=== PATIENT | male | born 1955 | race Caucasian/White ===

== ENCOUNTER 2024-05-14 07:21 | Emergency (ER) | payer MEDICARE, SELFPAY ==
[2024-05-14] VITALS (10 sets, daily range): BP systolic 121–157; BP diastolic 71–94; PULSE 71–128; RESP 15–32; TEMP 36.5–37.2; O2SAT 94–97; BMI 25.1
--- NOTE | ~2024-05-14 | CT_ITS ---
EXAMINATION: CT HEAD WITHOUT CONTRAST CLINICAL INFORMATION: Procedures, history of carcinoma, rule out bleed COMPARISON: None available. TECHNIQUE: Contiguous axial imaging was performed from the skull base to vertex without intravenous administration of contrast. This CT examination was performed using dose optimization techniques as appropriate, variously including the following: *Automated exposure control *Adjustment of mA and/or kV according to patient size (this includes techniques or standardized protocols for targeted exams where dose is matched to indication/reason for exam; i.e. extremities or head) *Use of iterative reconstruction technique DLP: 669 mGy-cm FINDINGS: There is approximately 2 cm high attenuation lesion in left insula with possible mild edema and mass effect. Ventricles and sulci appropriate for age. No evidence of intracranial hemorrhage. There is no evidence of hemorrhagic stroke or hydrocephalus Osseous structures unremarkable. Paranasal sinuses and mastoids are well aerated. CT/CT head/brain wo IV con IMPRESSION: Questionable mass in the left insula MRI is recommended for next evaluation
--- NOTE | ~2024-05-14 | XR_ITS ---
EXAMINATION: XR CHEST CLINICAL INFORMATION: Seizure. Evaluate for aspiration pneumonia. COMPARISON: None available. TECHNIQUE: Frontal view of the chest was obtained. FINDINGS: Lungs are hypoinflated and interstitium not optimally evaluated. No overt consolidation or pleural effusion. Cardiomediastinal silhouette has normal size and contour. No pneumothorax or pneumomediastinum. There is humeral head osteophyte formation at the degenerated glenohumeral joints. Old healed fracture of right lateral sixth rib. XR/XR chest 1V IMPRESSION: The evaluation lungs is partially limited by the hypoinflation. There is no radiographic evidence of aspiration pneumonia.
--- NOTE | 2024-05-14 07:27 | ED_ITS ---
HPI - Seizure General Chief Complaint: Seizure Stated Complaint: SZ,POSTICTAL/UNRESP, PER EMS Time Seen by Provider: 05/14/24 07:23 Source: EMS Mode of arrival: EMS Limitations: altered mental status History of Present Illness ED Provider: Dr. Mando Montoya HPI Narrative: 69-year-old male with a history of cancer and seizure disorder-we do not have any records on the patient at this facility who was brought into the emergency department by ambulance for evaluation of seizure. Information comes from EMS only. According to the patient's he was being treated for cancer. He was taking a pill for the cancer but had to stop this on Saturday (3 days prior) since the pill made him feel ill. Patient's witnessed a seizure at home that lasted approximately 1 minute. When the paramedics arrived the patient was postictal and hypoxic and was placed on 100% non-rebreather mask. In route to the hospital the patient had a seizure witnessed by the paramedics that lasted approximately 2 minutes. He was given Versed 2 mg IV. On presentation to the emergency department the patient was postictal with sonorous respirations, O2 saturation was 100% on the non-rebreather . Patient was placed on OxyMask at 5 L is O2 saturation is 98%. The patient appeared postictal on presentation The patient's , Cassandra, came to emergency department I gave me more information. She states that the patient was diagnosed with metastatic melanoma 03/16/2023. The patient was treated Keytruda immunotherapy x5 treatments. He was then started on an oral chemotherapy agent in May of 2023 but she does not know the name of this medication. She states this medication has occasionally caused him to have low white blood cell counts and nausea and vomiting. She states that on 05/11/2024 the patient was seen at [facility] for difficulty with finding words, confusion, nausea, vomiting but no headache. Patient had an evaluation that included a CT scan was diagnosed with a TIA and started on Plavix and advised to increase his aspirin from 81 mg to 325 mg daily. His told me that the patient did have a seizure approximately 8 months ago with a negative workup as well. Related Data Home Medications ?Medication ?Instructions ?Recorded ?Confirmed acetaminophen 325 mg tablet 650 mg PO Q6H PRN Pain 05/14/24 05/14/24 aspirin 325 mg tablet 325 mg PO DAILY 05/14/24 05/14/24 clopidogrel 75 mg tablet 75 mg PO DAILY 05/14/24 05/14/24 losartan 25 mg tablet 25 mg PO DAILY 05/14/24 05/14/24 multivitamin 1 tab PO DAILY 05/14/24 05/14/24 ondansetron 8 mg disintegrating 8 mg PO Q8H PRN nausea/vomiting 05/14/24 05/14/24 tablet prochlorperazine maleate 5 mg 5 mg PO Q6H PRN nausea/vomiting 05/14/24 05/14/24 tablet Allergies Allergy/AdvReac Type Severity Reaction Status Date / Time No Known Allergies Allergy Verified 05/14/24 08:19 Review of Systems 2 Review of Systems: Yes Unobtainable due to mental status [facility] Social History Social History Unable to assess alcohol history related to: Unable to respond Use of substances other than those prescribed or required for medical reasons: Unable to respond Advance Directives: No Advance Directives Information Provided: Yes Physical Exam 2 Vital Signs: Vital Signs: Last Vital Signs Temp 99 F 05/14/24 14:25 Pulse 73 05/14/24 14:25 Resp 32 H 05/14/24 14:25 BP 137/80 05/14/24 14:25 Pulse Ox 97 05/14/24 14:25 O2 Del Method Room Air 05/14/24 14:25 O2 Flow Rate 4 05/14/24 09:29 Oxygen Flow Rate 11 05/14/24 07:27 BMI result Body Mass Index 25.1 Vital signs revealed an elevated heart rate of 128 elevated respiratory 26 elevated blood pressure 157/95 Exam: General: Patient is altered, he appears to be postictal, he has sonorous respirations, there was blood coming out of his mouth secondary to a tongue bite injury the lateral aspect of his tongue Head: Normocephalic, atraumatic EENT: PERRL, Lids normal, sclera normal, conjunctiva normal, nose normal , ears normal, throat without erythema or exudates, left lateral tongue bite injury Neck: Supple, no adenopathy Lung: breath sounds symmetric, no wheezing, rales or rhonchi Chest: symmetric movement, nontender Heart: regular rate and rhythm, normal S1, S2 no murmurs or rubs Abdomen: soft, non-tender, nondistended, normal bowel sounds Back: no vertebral tenderness, no CVAT Extremities: no deformities, moves all extremities symmetrically Neuro: Postictal, not responding to commands Medications Administered Discontinued Medications Generic Name Dose Route Start Last Admin Trade Name Curry PRN Reason Stop Dose Admin Dexamethasone Sodium Phosphate 10 mg 05/14/24 09:39 05/14/24 09:57 Dexamethasone Sod Phosphate 10 Mg/Ml Vial IVPUSH 05/14/24 09:40 10 mg ONCE ONE Administration Sodium Chloride 1,000 mls @ 999 mls/hr 05/14/24 07:28 05/14/24 08:28 Ns IV 05/14/24 08:28 Infused .Q1H1M STA Infusion Sodium Chloride 1,000 mls @ 999 mls/hr 05/14/24 08:18 05/14/24 09:27 Ns IV 05/14/24 09:18 Infused .Q1H1M STA Infusion Sodium Chloride 1,000 mls @ 999 mls/hr 05/14/24 08:19 05/14/24 11:17 Ns IV 05/14/24 09:19 Infused .Q1H1M STA Infusion Levetiracetam 1,000 mg in 100 mls @ 400 mls/hr 05/14/24 09:39 05/14/24 11:17 Keppra IV 05/14/24 09:53 Infused ONCE ONE Infusion Lorazepam 1 mg 05/14/24 08:22 05/14/24 08:29 Lorazepam 2 Mg/Ml Vial IVPUSH 05/14/24 08:23 1 mg STAT STA Administration Medical Decision Making Medical Decision Making MDM Narrative: 69-year-old male with a metastatic melanoma diagnosed 03/16/2023 treated with Keytruda x5 doses and is currently on oral chemotherapy, seizure 8 months prior, recent evaluation at [facility] 3 days prior for difficulty finding words, confused nausea and vomiting diagnosed with TIA started on Plavix and increased aspirin dose to 325 who presents to emergency department evaluation of seizure at home and a 2 minute seizure that occurred during transport by EMS. Patient received Versed 2 mg IV by paramedics. On presentation the patient's was hypoxic and postictal. Initial vital signs revealed an elevated blood pressure 157/94, elevated heart rate 128 elevated respiratory rate of 26 an O2 saturation of 97% on OxyMask at 6 L. Differential diagnosis: ?Includes but is not limited to seizure disorder, metastatic disease to brain, electrolyte abnormalities, anemia Following evaluation was ordered:CBC, CMP, BNP, lipase, CK, magnesium, PT/INR, PTT, troponin, VBG, ethanol level, urinalysis, urine drug screen, Patient was initially treated with the following: Ativan 1 mg IV, normal saline IV x3 L, Keppra 1000 mg IV, dexamethasone 10 mg IV Course: 09:54 My interpretation patient's laboratory evaluation as follows. Elevated WBC 69023. Elevated platelet count 870383. CMP was normal. Lipase was negative. VBG is consistent with the patient's muscular lactic acidosis secondary to seizure with a pH of 7.06, pCO2 of 28 and a bicarb of 8. COVID-19 was negative. Urine tox screen was positive for benzos-she received benzos prior to getting a urine and for THC. BNP was elevated at 182. CK was normal at 99. Lactic acid was elevated 17.4-this is secondary to muscular activity during seizure and not secondary to sepsis. Urinalysis was positive for protein, glucose and blood, microscopic was unremarkable. Chest x-ray was unremarkable CT scan was concerning for possible metastatic lesion. Radiologist noted the following: There is approximately 2 cm high attenuation lesion in left insula with possible mild edema and mass effect. There was no mass effect noted by the radiologist. Given this reading in the fact that the patient gets his care at [facility], I will contact [facility] to see if we can transfer this patient for further evaluation and workup for possible metastatic lesion as the cause of his seizures. 11:49 I did speak to the [facility] transfer line and I was able to speak to the patient's neurologist, Dr. Burroughs. He recommended admitting the patient here, getting an MRI of the brain and observing him for seizures. He did not think the patient would need emergent radiation therapy. I will discuss admission with our neurologist and I will attempt to get an MRI here at this facility. 12:09 I did discuss the patient's presentation with our neurologist, Dr. Dyole and he agreed with Dr. Burroughs's recommendation. I did order the MRI brain with and without contrast. I will discuss admission with the covering hospitalist. The patient remains postictal. O2 saturation is 95% on room air. 14:28 The patient was seen by our oncologist, Dr. Rodriguez who felt that the patient was still aphasic and this could be related to the brain lesion and that the patient may require further oncologic care such as radiation therapy. She reached down to the patient's oncologist and did discuss the patient's presentation with Dr. Walter Soler who requested the patient be an ED to ED transfer pain. I did discuss the transfer with the [facility] Emergency Department attending, Dr. Dhillon and he did accept the patient as an ED to ED transfer. The patient will be transferred by ALS ambulance. I did inform the patient's with the transfer and she agrees with the transfer at this time. Admission/Observation Consideration of admission/observation: Escalation of care including admission/observation considered Consult Healthcare Provider Management of the patient was discussed with: Hospitalist (Physician commissary assistant Patricia Holliday) and Diversional Therapist (Neurology, Dr. Doyle and oncology Dr. Rodriguez) Lab Data MDM Lab Attestation statement: I reviewed the patient's lab results. 05/14/24 07:43 05/14/24 07:43 Labs: Lab Results 05/14/24 05/14/24 05/14/24 Range/Units 07:25 07:43 07:44 WBC 13.1 H (4.8-10.8) X10*3/uL RBC 4.76 (4.60-5.80) X10*6/uL Hgb 14.1 (14.0-18.0) g/dl Hct 45.7 (42.0-52.0) % MCV 96.0 (80.0-98.0) fL MCH 29.6 (27.0-33.0) pg MCHC 30.9 L (31.0-36.0) g/dl RDW 13.6 (11.0-16.0) % Plt Count 406 H (160-400) X10*3/uL MPV 9.5 (9.4-12.4) fL Immature Gran % (Auto) 0.3 (0.0-0.4) % Neut % (Auto) 71.0 (45-73) % Lymph % (Auto) 25.1 (20-40) % [place] % (Auto) 3.4 (2-11) % Eos % (Auto) 0.0 (0-4) % Baso % (Auto) 0.2 (0-2) % Lymph # (Auto) 3.3 (1.2-4.9) X10*3/uL [place] # (Auto) 0.5 (0.1-1.2) X10*3/uL Eos # (Auto) 0.0 (0.0-0.4) X10*3/uL Baso # (Auto) 0.0 (0.0-0.2) X10*3/uL Abs Immat Gran (auto) 0.04 H (0.00-0.03) X10*3/uL Absolute Neuts (auto) 9.3 H (2.0-8.3) x10*3/uL Absolute Nucleated RBC 0.000 (0.0-0.012) X10*3/uL Nucleated RBC % (auto) 0.0 (0.0-0.2) /100WBC PT 11.6 (11.1-13.3) SEC INR 1.0 (0.9-1.1) APTT 27.6 (26.0-36.8) SEC VBG pH 7.06 L* (7.32-7.43) VBG pCO2 28 mmHg VBG pO2 102 mmHg VBG HCO3 8 L (22-26) mmol/L VBG O2 Saturation 95.0 % VBG Base Excess -20.7 mmol/L Sodium 142 (135-145) mmol/L Potassium 3.5 (3.3-5.1) mmol/L Chloride 105 (96-108) mmol/L Carbon Dioxide 11 L (22-29) mmol/L Anion Gap 30 H (12-20) BUN 13 (9-16) mg/dL Creatinine 1.23 (0.5-1.4) mg/dL Estim Creat Clear Calc 57.4 Estimated GFR 59 POC Glucose 234 H (60-115) mg/dL Random Glucose 236 H (60-115) mg/dL Lactic Acid 17.4 H* (0.5-2.0) mmol/L Lactic Acid F/U @ 2Hr (0.5-2.0) mmol/L Lactic Acid F/U @ 4Hr (0.5-2.0) mmol/L Calcium 9.5 (8.4-10.2) mg/dL Magnesium 2.0 (1.6-2.6) mg/dL Total Bilirubin 0.3 (0.0-1.0) mg/dL AST 21 (5-37) U/L ALT 20 (0-40) U/L Alkaline Phosphatase 109 (39-117) U/L Total Creatine Kinase 99 (38-174) U/L Troponin I High Sens 8.9 (<3.5-35.0) ng/L B-Natriuretic Peptide 182 H (<100) pg/mL Total Protein 7.8 (6.5-8.0) g/dL Albumin 4.1 (3.5-5.0) g/dL Lipase 19 (8-78) U/L Urine Color Urine Appearance Urine pH (5.0-9.0) Ur Specific [place] (1.005-1.025) Urine Protein (Neg-Trace) mg/dL Urine Glucose (UA) (Negative) mg/dL Urine Ketones (Negative) mg/dL Urine Blood (Negative) Urine Nitrite (Negative) Ur Leukocyte Esterase (Negative) Urine RBC (0-2) /HPF Urine WBC (0-5) /HPF Ur Squamous Epith Cells (0-2) /HPF Urine Bacteria (None Seen) Hyaline Casts (0-2) /LPF Granular Casts Urine Opiates Screen (Not Detect) Ur Buprenorphine Scrn (Not Detect) ng/mL Ur Oxycodone Screen (Not Detect) ng/mL Urine Methadone Screen (Not Detect) ng/mL Urine Fentanyl Screen (Not Detect) Ur Barbiturates Screen (Not Detect) Ur Phencyclidine Scrn (Not Detect) Ur Amphetamines Screen (Not Detect) U Benzodiazepines Scrn (Not Detect) Urine Cocaine Screen (Not Detect) U Marijuana (THC) Screen (Not Detect) Ethyl Alcohol < 10 mg/dL COVID-19 (FREDO) Negative (Negative) COVID-19 Clin Com See Note 05/14/24 05/14/24 05/14/24 Range/Units 08:02 09:59 12:23 WBC (4.8-10.8) X10*3/uL RBC (4.60-5.80) X10*6/uL Hgb (14.0-18.0) g/dl Hct (42.0-52.0) % MCV (80.0-98.0) fL MCH (27.0-33.0) pg MCHC (31.0-36.0) g/dl RDW (11.0-16.0) % Plt Count (160-400) X10*3/uL MPV (9.4-12.4) fL Immature Gran % (Auto) (0.0-0.4) % Neut % (Auto) (45-73) % Lymph % (Auto) (20-40) % [place] % (Auto) (2-11) % Eos % (Auto) (0-4) % Baso % (Auto) (0-2) % Lymph # (Auto) (1.2-4.9) X10*3/uL [place] # (Auto) (0.1-1.2) X10*3/uL Eos # (Auto) (0.0-0.4) X10*3/uL Baso # (Auto) (0.0-0.2) X10*3/uL Abs Immat Gran (auto) (0.00-0.03) X10*3/uL Absolute Neuts (auto) (2.0-8.3) x10*3/uL Absolute Nucleated RBC (0.0-0.012) X10*3/uL Nucleated RBC % (auto) (0.0-0.2) /100WBC PT (11.1-13.3) SEC INR (0.9-1.1) APTT (26.0-36.8) SEC VBG pH (7.32-7.43) VBG pCO2 mmHg VBG pO2 mmHg VBG HCO3 (22-26) mmol/L VBG O2 Saturation % VBG Base Excess mmol/L Sodium (135-145) mmol/L Potassium (3.3-5.1) mmol/L Chloride (96-108) mmol/L Carbon Dioxide (22-29) mmol/L Anion Gap (12-20) BUN (9-16) mg/dL Creatinine (0.5-1.4) mg/dL Estim Creat Clear Calc Estimated GFR POC Glucose (60-115) mg/dL Random Glucose (60-115) mg/dL Lactic Acid (0.5-2.0) mmol/L Lactic Acid F/U @ 2Hr 3.2 H* (0.5-2.0) mmol/L Lactic Acid F/U @ 4Hr 1.0 (0.5-2.0) mmol/L Calcium (8.4-10.2) mg/dL Magnesium (1.6-2.6) mg/dL Total Bilirubin (0.0-1.0) mg/dL AST (5-37) U/L ALT (0-40) U/L Alkaline Phosphatase (39-117) U/L Total Creatine Kinase (38-174) U/L Troponin I High Sens (<3.5-35.0) ng/L B-Natriuretic Peptide (<100) pg/mL Total Protein (6.5-8.0) g/dL Albumin (3.5-5.0) g/dL Lipase (8-78) U/L Urine Color Yellow Urine Appearance Clear Urine pH 5.5 (5.0-9.0) Ur Specific [place] 1.025 (1.005-1.025) Urine Protein 100 (2+) H (Neg-Trace) mg/dL Urine Glucose (UA) 100 H (Negative) mg/dL Urine Ketones 15 (Negative) mg/dL Urine Blood Small (1+) H (Negative) Urine Nitrite Negative (Negative) Ur Leukocyte Esterase Negative (Negative) Urine RBC 0-2 (0-2) /HPF Urine WBC 0-5 (0-5) /HPF Ur Squamous Epith Cells 0-2 (0-2) /HPF Urine Bacteria None Seen (None Seen) Hyaline Casts 3-5 (0-2) /LPF Granular Casts Present Urine Opiates Screen Not Detected (Not Detect) Ur Buprenorphine Scrn Not Detected (Not Detect) ng/mL Ur Oxycodone Screen Not Detected (Not Detect) ng/mL Urine Methadone Screen Not Detected (Not Detect) ng/mL Urine Fentanyl Screen Not Detected (Not Detect) Ur Barbiturates Screen Not Detected (Not Detect) Ur Phencyclidine Scrn Not Detected (Not Detect) Ur Amphetamines Screen Not Detected (Not Detect) U Benzodiazepines Scrn POSITIVE H (Not Detect) Urine Cocaine Screen Not Detected (Not Detect) U Marijuana (THC) Screen POSITIVE H (Not Detect) Ethyl Alcohol mg/dL COVID-19 (FREDO) (Negative) COVID-19 Clin Com Independent Interpretation I performed an independent interpretation of an: Plain X-Ray Interpretation: My interpretation patient's one-view chest x-ray is as follows: No acute disease Radiology Impression Discussion of test interpretation with radiology: I have reviewed the radiologist's reading. Radiologist Impression: EXAMINATION: CT HEAD WITHOUT CONTRAST CLINICAL INFORMATION: Procedures, history of carcinoma, rule out bleed COMPARISON: None available. FINDINGS: There is approximately 2 cm high attenuation lesion in left insula with possible mild edema and mass effect. Ventricles and sulci appropriate for age. No evidence of intracranial hemorrhage. There is no evidence of hemorrhagic stroke or hydrocephalus Osseous structures unremarkable. Paranasal sinuses and mastoids are well aerated. IMPRESSION: Questionable mass in the left insula MRI is recommended for next evaluation Dictated By: Francisca Downing MD EXAMINATION: XR CHEST CLINICAL INFORMATION: Seizure. Evaluate for aspiration pneumonia. COMPARISON: None available. FINDINGS: Lungs are hypoinflated and interstitium not optimally evaluated. No overt consolidation or pleural effusion. Cardiomediastinal silhouette has normal size and contour. No pneumothorax or pneumomediastinum. There is humeral head osteophyte formation at the degenerated glenohumeral joints. Old healed fracture of right lateral sixth rib. IMPRESSION: The evaluation lungs is partially limited by the hypoinflation. There is no radiographic evidence of aspiration pneumonia. Dictated By: Uziel Laguna MD Independent Historian Clinical information obtained from an independent historian. History obtained from or confirmed by: Spouse Chronic Conditions Patient?s care impacted by: Other (Metastatic malignant melanoma) Critical Care Time Critical Care Time Critical Care Time: Yes Total Critical Care Time: 80 Attestation: Critical Care: The patient was critically ill with a high probability of imminent or life threatening deterioration. I spent greater than 30 minutes of discontinuous time evaluating the patient,delivering critical care at the bedside, discussing and evaluating pertinent data with consultants. Critical care time does not include time spent performing separately billable procedures or teaching. Total time spent performing critical care was 80 minutes. Discharge Plan Discharge Clinical Impression: Epileptic seizure, Metastasis to brain, Post-ictal aphasia Patient Disposition: Critical Access Hospital Hospital Transfer Details: [facility] ED to ED transfer, accepting attending physician, Dr. Dhillon Prescriptions: No Action prochlorperazine maleate 5 mg tablet 5 mg PO Q6H PRN (Reason: nausea/vomiting) clopidogrel 75 mg tablet 75 mg PO DAILY ondansetron 8 mg tablet,disintegrating 8 mg PO Q8H PRN (Reason: nausea/vomiting) losartan 25 mg tablet 25 mg PO DAILY aspirin 325 mg Tablet 325 mg PO DAILY multivitamin Tablet 1 tab PO DAILY acetaminophen 325 mg Tablet 650 mg PO Q6H PRN (Reason: Pain) Print Language: Lithuanian
--- NOTE | 2024-05-14 07:29 | ECG_ITS ---
Test Reason : seizure Blood Pressure : / mmHG Vent. Rate : 116 BPM Atrial Rate : 116 BPM P-R Int : 178 ms QRS Dur : 094 ms QT Int : 452 ms P-R-T Axes : 041 001 022 degrees QTc Int : 628 ms Sinus tachycardia with Premature atrial complexes Left ventricular hypertrophy with repolarization abnormality ( [place] product ) Prolonged QT Abnormal ECG No previous ECGs available Referred By: Mando Montoya Electronically Signed By:ALFA CARDOSO MD
--- NOTE | 2024-05-14 07:31 | PC.RT ---
Pt came in via EMS post witnessed seizure x2. Pt still unresponsive. RT called to bedside. Pt taken off EMS 10L NRB and placed on 10L oxy mask. RT attempted to suction mouth w/ yankauer, only a scant amount of karishma blood was suctioned out, appears to be from tongue wound during seizure. Pt noted to have snoring respirations that improved slightly with reposition of the head with pillow. Oxymask titrated down to 6L by RT per MD request. Pt SATs 94% on 6L oxymask. Will continue to monitor status.
[2024-05-14] MEDS: 0.9 % Sodium Chloride 1,000 ML 999 ML IV ×3 (07:32→09:28)
[2024-05-14 07:43] LABS: Glucose, Whole Blood 234 mg/dL (60-115)
[2024-05-14 07:48] LABS: MANUAL DIFF FLAG NO
[2024-05-14 07:49] LABS: Basophils Percent Auto 0.2 % (0-2); Hematocrit 45.7 % (42.0-52.0); Hemoglobin 14.1 g/dl (14.0-18.0); Imm Gran Abs Auto 0.04 X10*3/uL (0.00-0.03); Imm Gran Pct Auto 0.3 % (0.0-0.4); Lymphocytes Absolute Auto 3.3 X10*3/uL (1.2-4.9); Lymphocytes Percent Auto 25.1 % (20-40); Mean Corpuscular HGB Conc 30.9 g/dl (31.0-36.0); Mean Corpuscular Hemoglobin 29.6 pg (27.0-33.0); Mean Platelet Volume 9.5 fL (9.4-12.4); Monocytes Absolute Auto 0.5 X10*3/uL (0.1-1.2); Monocytes Percent Auto 3.4 % (2-11); Neutrophils Absolute Auto 9.3 x10*3/uL (2.0-8.3); Platelet Count 406 X10*3/uL (160-400); Red Blood Count 4.76 X10*6/uL (4.60-5.80); Red Cell Distribution Width 13.6 % (11.0-16.0); White Blood Count 13.1 X10*3/uL (4.8-10.8)
[2024-05-14 07:57] LABS: Prothrombin Time 11.6 SEC (11.1-13.3)
[2024-05-14 07:59] LABS: Partial Thromboplastin Time 27.6 SEC (26.0-36.8)
[2024-05-14 08:01] LABS: Venous Blood Gas Refer to POC result
[2024-05-14 08:02] LABS: VBG Base Excess -20.7 mmol/L; VBG HCO3 8 mmol/L (22-26); VBG pCO2 28 mmHg; VBG pH 7.06 (7.32-7.43); VBG pO2 102 mmHg
[2024-05-14 08:06] LABS: Ethanol < 10 mg/dL
[2024-05-14 08:07] LABS: Alanine Aminotransferase 20 U/L (0-40); Albumin Level 4.1 g/dL (3.5-5.0); Alkaline Phosphatase 109 U/L (39-117); Anion Gap 30 (12-20); Aspartate Amino Transferase 21 U/L (5-37); Bilirubin Total 0.3 mg/dL (0.0-1.0); Blood Urea Nitrogen 13 mg/dL (9-16); Calcium 9.5 mg/dL (8.4-10.2); Carbon Dioxide 11 mmol/L (22-29); Chloride 105 mmol/L (96-108); Creatinine Clr Calc Pharmacy 57.4; Estimated Glomerular Filt Rate 59; Glucose Random 236 mg/dL (60-115); Lipase 19 U/L (8-78); Potassium 3.5 mmol/L (3.3-5.1); Sodium 142 mmol/L (135-145); Total Protein 7.8 g/dL (6.5-8.0)
--- NOTE | 2024-05-14 08:09 | PC.NURSE ---
Pt arrives via EMS wiht reports of a witnessed seizure x1 minute at home. EMS reports additional seizure x1 minute in ambulance with 2mg Versed given. Per EMS, last seizure was 8 months ago. Hx of oral Chemo, but stopped as of Saturday d/t side effects. No seizure activity witnessed upon arrival. Pt is unresponsive at this time. BP elevated, tachycardic, and tachypneic. 18g in RAC from EMS; 18g LAC. Blood labs drawn, mcgowan cath placed w/urine spec obtained. CXR completed. Awaiting all results.
[2024-05-14 08:11] LABS: B Type Natriuretic Peptide 182 pg/mL (<100)
[2024-05-14 08:12] LABS: Troponin-I High Sensitivity 8.9 ng/L (<3.5-35.0)
[2024-05-14 08:15] LABS: Lactic Acid 17.4 mmol/L (0.5-2.0)
[2024-05-14 08:16] LABS: Appearance Urine Clear; Color Urine Yellow; Glucose Urine UA 100 mg/dL (Negative); Leukocyte Esterase Urine Negative (Negative); Nitrite Urine Negative (Negative); PH 5.5 (5.0-9.0); Specific Gravity - Urine 1.025 (1.005-1.025); UMIC TRIGGER UACC YES; Urine Blood Small (1+) (Negative); Urine Ketones 15 mg/dL (Negative); Urine Protein 100 (2+) mg/dL (Neg-Trace)
[2024-05-14 08:19] LABS: COVID-19 Test Negative (Negative); IDNOW Serial# 152EDE1D
[2024-05-14 08:19] LABS: Amphetamine Screen Urine Not Detected (Not Detect); Barbiturates, Urine Not Detected (Not Detect); Benzodiazepines Screen Urine POSITIVE (Not Detect); Buprenorphine Scr Not Detected (Not Detect); Cannabinoid Screen Urine POSITIVE (Not Detect); Cocaine Screen Urine Not Detected (Not Detect); Fentanyl, urine Not Detected (Not Detect); Methadone Screen, Urine Not Detected (Not Detect); Opiate Screen Urine Not Detected (Not Detect); Oxycodone Screen Urine Not Detected (Not Detect); Phencyclidine Screen Urine Not Detected (Not Detect)
[2024-05-14 08:28] LABS: Bacteria Urine None Seen (None Seen); Granular Casts Urine Present; RBC Urine 0-2 /HPF (0-2); Squamous Epithelial Cell Urine 0-2 /HPF (0-2); WBC Urine 0-5 /HPF (0-5)
[2024-05-14] MEDS: LORazepam 2 MG/ML VIAL 1 MG IVPUSH (08:29)
--- NOTE | 2024-05-14 08:32 | PC.NURSE ---
Pt returns from CT and is alert. Provider at bedside and orders 2 addition liters of NS and 1mg Ativan IV push. Pt is awake but does not respond verbally. He follows commands for arm positioning for medication administration. VSS at this time. Will continue to monitor.
[2024-05-14 09:49] LABS: Reflex Lactate? Lactic Acid Added
[2024-05-14] MEDS: levETIRAcetam in NaCl (iso-os) 1,000 MG/100 ML PIGGYBACK 400 MG IV (09:56)
[2024-05-14] MEDS: dexAMETHasone sod phosphate 10 MG/ML VIAL IVPUSH (09:57)
--- NOTE | 2024-05-14 10:02 | PC.NURSE ---
Per provider, attempt to have Pt transition to RA. O2 ended while this RN in room administering medications. Pt tolerates RA well at this time. made aware and O2 can be reinitiated if Pt not tolerating. Pt medicated per DEC.
[2024-05-14 10:51] LABS: ~Lactic Acid-LAB USE ONLY 3.2 mmol/L (0.5-2.0)
[2024-05-14 12:02] LABS: Reflex Lactate? 2 Y
--- NOTE | 2024-05-14 12:09 | PC.NURSE ---
MRI screening form completed with Zenia vicente/charly via telephone
--- NOTE | 2024-05-14 12:59 | PHA.MEDREC ---
Addendum entered by Susie Wright RPh 05/14/24 13:10: MED REC REVIEWED Original Note: Pharmacy Consult ? Medication Reconciliation Pharmacy has completed the medication reconciliation. Spoke with patients , Zenia ([phone]), and she confirmed pts med list. She stated that the patient d/c the Tafinlar and Mekinist on Saturday per instructions from his doctor after experiencing some side effects. She told me that she gave his his Aspirin, losartan and Plavix yesterday around 4 pm and last night he took a Zofran around 10pm.
--- NOTE | 2024-05-14 13:26 | P.CNNE_ITS ---
History of Present Illness Data of Consult Service Date: 05/14/24 Primary Care Provider: Monique Spears CNP HPI Reason for consult: Seizure 69 years old man who has underlying history of metastatic melanoma came to hospital after seizure. In emergency room he was treated with Keppra 1000 mg and then lorazepam. After that he was noted to be ?postictal?. He was unable to provide any history. Review of Systems 2 Review of Systems: Could not be done with [facility] Social History Social History Unable to assess alcohol history related to: Unable to respond Use of substances other than those prescribed or required for medical reasons: Unable to respond Advance Directives: No Advance Directives Information Provided: Yes Meds Allergies Allergy/AdvReac Type Severity Reaction Status Date / Time No Known Allergies Allergy Verified 05/14/24 08:19 Home Medications ?Medication ?Instructions ?Recorded ?Confirmed ?Last Taken ?Type acetaminophen 325 mg tablet 650 mg PO Q6H PRN Pain 05/14/24 05/14/24 Unknown History aspirin 325 mg tablet 325 mg PO DAILY 05/14/24 05/14/24 05/13/24 16:00 History clopidogrel 75 mg tablet 75 mg PO DAILY 05/14/24 05/14/24 05/13/24 16:00 History losartan 25 mg tablet 25 mg PO DAILY 05/14/24 05/14/24 05/13/24 16:00 History multivitamin 1 tab PO DAILY 05/14/24 05/14/24 Unknown History ondansetron 8 mg disintegrating 8 mg PO Q8H PRN nausea/vomiting 05/14/24 05/14/24 05/13/24 22:00 History tablet prochlorperazine maleate 5 mg 5 mg PO Q6H PRN nausea/vomiting 05/14/24 05/14/24 Unknown History tablet Physical Exam 2 Vital Signs: Vital Signs: Last Vital Signs Temp 98.6 F 05/14/24 13:05 Pulse 71 05/14/24 13:05 Resp 15 05/14/24 13:05 BP 142/81 H 05/14/24 13:05 Pulse Ox 97 05/14/24 13:05 O2 Del Method Room Air 05/14/24 13:05 O2 Flow Rate 4 05/14/24 09:29 Oxygen Flow Rate 11 05/14/24 07:27 BMI result Body Mass Index 25.1 Neuro: Other: Alert and awake looking around anxious type but did not say a word. He was not following commands. Face was symmetrical. Visual kumar were difficult to determine but he was looking around. There was no obvious focal weakness. Results Labs 05/14/24 07:43 05/14/24 07:43 Labs: Short CBC 05/14/24 Range/Units 07:43 WBC 13.1 H (4.8-10.8) X10*3/uL Hgb 14.1 (14.0-18.0) g/dl Hct 45.7 (42.0-52.0) % Plt Count 406 H (160-400) X10*3/uL BMP 05/14/24 07:43 Sodium 142 Potassium 3.5 Chloride 105 Carbon Dioxide 11 L BUN 13 Creatinine 1.23 Calcium 9.5 Cardiac Enzymes 05/14/24 Range/Units 07:43 Total Creatine Kinase 99 (38-174) U/L Liver Function 05/14/24 Range/Units 07:43 Total Bilirubin 0.3 (0.0-1.0) mg/dL AST 21 (5-37) U/L ALT 20 (0-40) U/L Alkaline Phosphatase 109 (39-117) U/L Albumin 4.1 (3.5-5.0) g/dL Urine 05/14/24 Range/Units 08:02 Urine Color Yellow Urine Appearance Clear Urine pH 5.5 (5.0-9.0) Ur Specific [place] 1.025 (1.005-1.025) Urine Protein 100 (2+) H (Neg-Trace) mg/dL Urine Glucose (UA) 100 H (Negative) mg/dL Head CT revealed a left perisylvian mixed density lesion with hypodensity adjust sent to it. 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 At this time he has received 10 mg of Decadron in emergency room and a dose of levetiracetam. My recommendation is to contact his oncologist for future course of action. Otherwise levetiracetam 500 mg twice a day should continue with starting does tonight. An MRI of brain with and without contrast if possible is needed. Procedures Date of Service Date of Service: 05/14/24
--- NOTE | 2024-05-14 14:28 | PC.NURSE ---
Seen by Neuro here, Dr Montoya reaching out to [facility]
--- NOTE | 2024-05-14 16:10 | PC.NURSE ---
Call placed to [facility] regarding transfer for a RN to RN report. Spoke with STEVE Oliveria and full report given. Awaiting ambulance ride to transportation.
--- NOTE | 2024-05-14 16:48 | PC.NURSE ---
EMS arrives to transport Pt to [facility]. Report given and care was relinquished to EMS.
== END 2024-05-14 16:58 | disposition short-term general hospital (02) ==
PROVIDERS: Emergency Provider Emergency Medicine Emergency Medical Services; PCP Nurse Practitioner Family
DX: G40.802 Other epilepsy, not intractable, without status epilepticus (principal); C79.31 Secondary malignant neoplasm of brain; R47.01 Aphasia; R09.02 Hypoxemia; Z86.73 Personal history of transient ischemic attack (TIA), and cerebral infarction without residual deficits; Z11.52 Encounter for screening for COVID-19; Z79.899 Other long term (current) drug therapy; Z79.82 Long term (current) use of aspirin
CPT/HCPCS: 36415; 70450; 71045; 80053; 80307; 81001; 82550; 82803; 82947; 83605; 83690; 83735; 83880; 84484; 85025; 85610; 85730; 87635; 93005; 96361; 96374; 96375; 99285; J1100; J1953; J2060

== ENCOUNTER → 2024-05-14 07:29 | Outpatient (BNV) | payer MEDICARE, SELFPAY | PROVIDERS: Emergency Provider Emergency Medicine Emergency Medical Services; PCP Nurse Practitioner Family; Visit Provider Internal Medicine Cardiovascular Disease | DX: R94.31 Abnormal electrocardiogram [ECG] [EKG] (principal) | CPT/HCPCS: 93010 ==

== ENCOUNTER → 2024-05-14 08:53 | Outpatient (BNV) | payer MEDICARE, SELFPAY | PROVIDERS: Emergency Provider Emergency Medicine Emergency Medical Services; PCP Nurse Practitioner Family; Visit Provider Psychiatry & Neurology Neurology | DX: G40.909 Epilepsy, unspecified, not intractable, without status epilepticus (principal) | CPT/HCPCS: 99282 ==